=== PATIENT | female | born 1990 | race African-American/Black ===

== ENCOUNTER 2021-09-21 08:03 | Emergency (ER) | payer BC ==
[~2021-09-21] VITALS: Ht 162.6 cm; Wt 60.3 kg
[2021-09-21 08:10] VITALS: BP_SYST 99
--- NOTE | 2021-09-21 08:10 | NUR ---
Pt to bed 5 for evaluation. Report given to SAMM Ingram who will assume care.
--- NOTE | 2021-09-21 08:15 | NUR ---
ER at bedside examining patient.
--- NOTE | 2021-09-21 08:20 | NUR ---
Patient came in with complaints of scant vaginal bleeding and cramping. Patient states currently 5 weeks per home test, had one visit with OBGYN per patient was too early to see anything by ultrasound. Rates cramping pain 4/10.
--- NOTE | 2021-09-21 08:25 | NUR ---
Patient transported to radiology via wheelchair, accompanied by staff.
[2021-09-21] MEDS ORDERED: ACETAMINOPHEN 500 MG TABLET PO ONE (08:30)
[2021-09-21 09:26] LABS: BASOPHILS % (AUTO) 0.4 % (0.0-2.0); EOSINOPHILS % (AUTO) 0.7 % (0.0-4.0); HEMATOCRIT 41.6 % (36-48); HEMOGLOBIN 13.8 g/dL (12.0-16.0); LYMPHOCYTES # (AUTO) 1.5 K/uL (1.0-5.5); LYMPHOCYTES % (AUTO) 23.8 % (20.5-51.5); MEAN CORPUSCULAR HEMOGLOBIN 29 pg (27-31); MEAN CORPUSCULAR HGB CONC 33 % (32-36); MEAN CORPUSCULAR VOLUME 89 fL (79.0-98.0); MONOCYTES # (AUTO) 0.4 K/uL (0.0-1.0); MONOCYTES % (AUTO) 6.4 % (1.7-9.3); NEUTROPHILS # (AUTO) 4.4 K/uL (1.8-7.7); NEUTROPHILS % (AUTO) 68.7 % (40.0-70.0); PLATELET COUNT (AUTO) 241 K/uL (130-430); RED BLOOD CELL COUNT(AUTO) 4.68 MIL/uL (4.2-6.2); WHITE BLOOD COUNT (AUTO) 6.4 K/uL (4.8-10.8)
[2021-09-21] MEDS ORDERED: NITR-85 PO (10:11)
[2021-09-21] MEDS ORDERED: ACET325T53 PO (10:11)
[2021-09-21 10:26] VITALS: BP_SYST 99
--- NOTE | 2021-09-21 10:27 | NUR ---
Patient given written and verbal discharge instructions and verbalizes understanding. ER MD discussed with patient the results and treatment provided. Patient in stable condition. ID arm band removed. IV catheter removed intact and dressing applied, no active bleeding. Rx of Macrobid and Tylenol given. Patient educated on pain management and to follow up with PMD. Pain Scale 0/10. Opportunity for questions provided and answered. Medication side effect fact sheet provided.
== END 2021-09-21 10:26 | disposition home or self-care (01) ==
LOC: SED 08:03
DX: O20.0 Threatened abortion (principal); O23.40 Unspecified infection of urinary tract in pregnancy, unspecified trimester; Z3A.01 Less than 8 weeks gestation of pregnancy
CPT/HCPCS: 36415; 76801; 76817; 81002; 81025; 84702; 85025; 86900; 86901; 99284

== ENCOUNTER 2022-08-09 11:47 | Observation (INO) | payer BC ==
[~2022-08-09] VITALS: Ht 162.6 cm; Wt 78.5 kg
[~2022-08-09 11:47] MED LIST: ACET325T53 PO; NITR-85 PO
== END 2022-08-09 13:10 | disposition home or self-care (01) ==
LOC: SPU 11:47
PROVIDERS: ADMIT Obstetrics & Gynecology; ATTEND Obstetrics & Gynecology
DX: O26.892 Other specified pregnancy related conditions, second trimester (principal); R10.12 Left upper quadrant pain; Z3A.26 26 weeks gestation of pregnancy
CPT/HCPCS: 81002; G0379; G0378